=== PATIENT | female | born 1995 | race Two or more races ===

== ENCOUNTER 2025-11-09 12:10 | Emergency (ER) | payer MEDICAID ==
[~2025-11-09] VITALS: Ht 167.6 cm; Wt 63.5 kg
[2025-11-09 12:18] VITALS: BP 126/74; TEMP 98.6; O2SAT 97
[2025-11-09 13:14] LABS: APPEARANCE,URINE CLEAR (CLEAR); BLOOD, URINE 2+ Ery/uL (NEGATIVE); LEUKOCYTE ESTERASE ,URINE 1+ (NEGATIVE); NITRITE, URINE POSITIVE (NEGATIVE); UGLUCOSE TRACE mg/dL (NEGATIVE)
[2025-11-09 13:18] LABS: PREGNANCY TEST URINE QUAL NEGATIVE (NEGATIVE)
[2025-11-09 13:24] LABS: ADD URINE CULTURE YES; SQUAMOUS EPITHELIAL CELL,UR Rare /HPF (None Seen)
[2025-11-09] MEDS ORDERED: NITR100C6 PO (13:25)
== END 2025-11-09 14:03 | disposition home or self-care (01) ==
LOC: ER 12:22
DX: N39.0 Urinary tract infection, site not specified (principal)
CPT/HCPCS: 81001; 84703-TC; 87086-TC